=== PATIENT | male | born 1960 | race Caucasian/White ===

== ENCOUNTER 2023-05-02 05:22 | Outpatient (CLI) | payer OTHER, SELFPAY ==
[2023-04-28 12:49] VITALS: BMI 27.8
--- NOTE | 2023-04-28 12:50 | PC.NURSE ---
Pre Radiology instructions Report to the outpatient wojciech ye on date _05/02/23___ at time __0900 for procedure Time: __1100__ YOU MAY BE MONITORED AT HOSPITAL FOR UP TO 4 HOURS AFTER YOUR PROCEDURE. A visitor will be allowed to accompany the patient into the hospital. You and your visitor will be asked to self-screen and do not enter if you have any COVID symptoms. A mask is OPTIONAL within the hospital. Patients are to have no food or drink 6 hours prior to procedure time Driving will be restricted after the procedure, you must have a person to drive you home. Labs will be drawn in preop area and once reviewed, you will be taken to radiology area for procedure. When the procedure is completed, you will be taken to outpatient where you will be monitored for several hours. You may have one visitor in this area. Other than holding anti-coagulants, patient may take other medication(s) as scheduled. Prior to your appointment date patients are instructed to hold anti-coagulants after discussing with ordering provider to stop. If unable to discontinue anti-coagulants please notify radiologist. ? No aspirin or warfarin (Coumadin) for 7 days prior to the procedure. ? No clopidogrel (Plavix), ticagrelor (Brilinta), prasugrel (Effient) or dabigatran (Pradaxa) for 5 days prior to the procedure. ? No rivaroxaban (Xarelto), apixaban (Eliquis), dipyridamole (Aggrenox or Persantine) or cilostazol (Pletal) for 2 days prior to the procedure. Medications to discontinue per physician: ___ASPIRIN Date to take last dose: _PT STATES LAST DOSE WAS 04/21/23 Please leave all valuables, including medications, at home the day of procedure. The hospital will not accept responsibility for valuables. Wear comfortable, loose fitting clothing.? Follow any additional instructions given to you from ordering provider. Telephone instructions given to ___PT and asked if any additional questions and then verbalized understanding. Patient advised to call scheduling provider office or registration scheduling [phone] if any additional questions.
--- NOTE | ~2023-05-02 | XR_ITS ---
EXAMINATION: CT lumbar spine w con, XR myelogram spine lumbosacral DATE: 05/02/2023 11:21 INDICATION: Lumbar spondylosis, unable to obtain lumbar spine MRI. TECHNIQUE: Informed consent was obtained from the patient. Risks and benefits including bleeding, i nfection, allergic reaction, spinal headache and nerve root injury were discussed with the patient. The patient agreed to proceed. Time out procedure was performed. [employer] radiograph was obtained. An entry site was chosen at the L4-L5 level. A left paracentral approach was used. Standard sterile p rep was done with Betadine. Entry site was infiltrated with 3 cc 1% lidocaine. A 3.5 22G spinal ne edle was then inserted into the spinal canal. 17 mL Omnipaque 180 were then injected into the thecal sac with intermittent fluoroscopic observation confirming intrathecal administration. Frontal, lateral and oblique fluoroscopic images were then acquired. The patient was then transferre d to CT scan for spiral CT of the lumbar spine. The patient was then transferred to the recovery area for 2 hours of observation. There are no immediate complications. Coronal and sagittal reformatted images of the lumbar spine CT were also reviewed. FINDINGS: Alignment is normal. Chronic mild likely physiologic anterior wedging at T12 and L1. Remaining verteb ral body heights are normal. No fracture or pars interarticularis defects. Mild disc height loss at L 3-L4 and L4-L5. 2.1 cm fluid attenuation cyst at the lower pole of the right kidney. 1.6 cm slightly greater than simple fluid attenuation likely complex cyst at the upper pole of the left kidney. Parav ertebral soft tissues are otherwise unremarkable. There is a spinal stimulator projecting over the [facility] lower quadrant on the utility repairer topogram with leads extending into the central canal via right parace ntral approach at the level of T12-L1 and extending cephalad with distal stimulator tip at level of t he cephalad aspect of T7. Right total hip arthroplasty. The following disc levels are specifically di scussed: T11-T12: Disc is mildly bulging. There is mild right and moderate left facet joint osteoarthritis. Th ere is mild left neural foraminal stenosis. There is no central canal stenosis. T12-L1: Disc is mildly bulging. There is minimal bilateral facet joint osteoarthritis. There is no ne ural foraminal stenosis. There is no central canal stenosis. L1-L2: Disc is mildly bulging. There is mild bilateral facet joint osteoarthritis. There is no neural foraminal stenosis. There is no central canal stenosis. L2-L3: Disc is mildly bulging. There is mild bilateral facet joint osteoarthritis. There is mild bila teral neural foraminal stenosis. There is no central canal stenosis. L3-L4: Moderate diffuse disc bulge. There is mild bilateral facet joint osteoarthritis. There is mild bilateral neural foraminal stenosis. There is mild central canal stenosis. L4-L5: Moderate diffuse disc bulge. There is mild to moderate right and moderate left facet joint ost eoarthritis. There is moderate bilateral neural foraminal stenosis. There is mild central canal steno sis. L5-S1: Moderate diffuse disc bulge. There is moderate bilateral facet joint osteoarthritis. There is mild bilateral neural foraminal stenosis. There is no central canal stenosis. IMPRESSION: 1. Mild lumbar spondylosis. 2. 1.6 cm hypodense lesion at the peripheral the left kidney with slightly greater than simple fluid attenuation most likely proteinaceous/hemorrhagic cyst although solid neoplasm cannot be optimally ex cluded. Could consider ultrasound for further evaluation although there is still the potential for no ndiagnostic study and could also consider further evaluation with pre and postcontrast CT or MRI. Reviewed, dictated and finalized at location A. Electronically signed by Roge Umaña M.D. on
[2023-05-02 09:48] LABS: Mean Platelet Volume 9.5 fl (7.4-10.4); Platelet Count Result 234 k/mm3 (150-375)
[2023-05-02 09:49] VITALS: BP 145/80; PULSE 73; RESP 16; TEMP 36.8; O2SAT 97
[2023-05-02 10:02] LABS: Prothrombin Time 13.2 Seconds (11.1-14.7)
[2023-05-02 11:15] VITALS: BP 139/99; PULSE 72; RESP 20
[2023-05-02] MEDS: ACETAMINOPHEN 500 MG TABLET 1000 MG PO (11:31)
[2023-05-02 11:45] VITALS: BP 123/92; PULSE 60; RESP 20
[2023-05-02 12:15] VITALS: BP 119/83; PULSE 60; RESP 20
[2023-05-02 12:45] VITALS: BP 117/86; PULSE 66; RESP 20
[2023-05-02 13:10] VITALS: BP 126/88; PULSE 57; RESP 20
== END 2023-05-02 13:16 | disposition home or self-care (01) ==
PROVIDERS: PCP Internal Medicine Infectious Disease; Referring Provider Neurological Surgery; Visit Provider Radiology Diagnostic Radiology
DX: M54.9 Dorsalgia, unspecified (principal); I73.9 Peripheral vascular disease, unspecified
CPT/HCPCS: 36415; 62304; 72132; 85049; 85610; A9270; Q9965